=== PATIENT | female | born 1945 | race Caucasian/White ===

== ENCOUNTER → 2017-04-16 | Day surgery (SDC) | payer MEDICARE, OTHER ==
[~2017-04-16] VITALS: Ht 162.6 cm; Wt 63.0 kg
[~2017-04-16] MED LIST: ACETAMINOPHEN TAB 650MG DOSE (2X325MG) As Ordered ONE; ACETAMINOPHEN TAB 650MG DOSE (2X325MG) PO PRN; ACETYLCHOLINE OPHTH SOLN 1% 2ML (MIOCHOL-E) As Ordered ONE; AMLO10TA2 PO; ASPI1TAB PO; ATEN25TA PO; BALANCED SALT IRRIGATION SOLUTION 500ML BAG (FOR OR EYE MACHINE) As Ordered ONE; CEFUROXIME 1MG/0.1ML INTRACAMERAL INJ As Ordered ONE; COQ-400C PO; D5W/0.2% SODIUM CHLORIDE 1,000 ML IV SCH; D5W/0.2% SODIUM CHLORIDE 250 ML IV ONE; HEALON DUET (HEALON 10MG/ML 0.55ML & HEALON ENDOCOAT 30MG/ML 0.85ML) As Ordered ONE; LIDOCAINE 0.75%/EPINEPHRINE 0.025% IN BSS 1ML SYR INTRACAMERAL (OR ONLY) As Ordered ONE; LIDOCAINE 4% INJ 5 ML AMP As Ordered ONE; MIDAZOLAM INJ 2 MG/2 ML VIAL (J2250) As Ordered ONE; OFLOXACIN 0.3 % (OCUFLOX) OPTH SOL 5ML OS ONE; OMEP20CA3 PO; ONDANSETRON 4MG/2ML VIAL (J2405) IV PRN; PAXI10TA2 PO; PHENYLEPHRINE 2.5% OPHTH SOL 2ML OS ONE; POVIDONE-IODINE 5% OPHTH PREP SOL 30ML As Ordered ONE; PROPARACAINE 0.5% OPHTH SOL 15ML OS ONE; SIMV40TA2 PO; TOBRADEX OPHTH OINT 3.5 GM As Ordered ONE; TRAD5TAB PO; TROPICAMIDE 1% OPHTH SOLN 2ML OS ONE; [UNRECOGNIZED DRUG - CODE] PO; fentaNYL 100 MCG/2 ML INJECTION (J3010) As Ordered ONE
[2017-04-16 09:50] VITALS: BP 172/74
--- NOTE | 2017-04-17 07:36 | RO ---
DATE OF PROCEDURE: 04/16/2017 PREOPERATIVE DIAGNOSIS: Visually significant nuclear sclerotic cataract left eye. POSTOPERATIVE DIAGNOSIS: Visually significant nuclear sclerotic cataract left eye. PROCEDURE: Cataract extraction with use of phacoemulsification and placement of intraocular lens Tahir AU00T0, 24.5 diopter, left eye. SURGEON: Sal Milton DO AGRONOMY TEACHER: ANESTHESIA: Local with monitored anesthesia care (MAC). COMPLICATIONS: None. POSTOPERATIVE CONDITION: Stable. INDICATION FOR SURGERY: Blurred vision left eye affecting patient's activities of daily living. DESCRIPTION OF PROCEDURE: The patient was seen in the preoperative area and properly identified. The correct operative eye was identified and marked. Attention was turned to that eye. The patient received topical antibiotics in the preoperative area. The patient then received topical dilating drops consisting of tropicamide and phenylephrine. The patient was then transferred to the operating room. The correct side was reidentified. The patient received topical anesthetics and antibiotics on the surface of the eye. The eye was prepped and draped in a sterile fashion. The upper and lower eyelids were isolated with Tegaderm tape, and the lids were held open with an adjustable speculum. Using a sideport blade, a paracentesis incision was made. Intraocular preservative-free lidocaine was then injected into the anterior chamber. Viscoelastic was then injected into the anterior chamber through the paracentesis. Using a 2.65 mm sharp-tipped keratome, the anterior chamber was entered via a temporal clear corneal incision. A continuous curvilinear capsulorrhexis was created with the aid of a 26-gauge cystotome and Utrata forceps. Hydrodissection was performed with balanced salt solution (BSS) on a blunt cannula until the nucleus was freely mobile. The crystalline lens was phacoemulsified and aspirated. Additional cohesive viscoelastic was placed into the capsular bag to deepen it. An AU00T0 lens was placed into the capsular bag and confirmed by visualizing the continuous curvilinear capsulorrhexis. Additional irrigation and aspiration was used to remove cortical material and remaining viscoelastic. The clear corneal incision was hydrated with BSS on a blunt cannula. The lens was well positioned. The incisions were then tested for leaks and found to be negative. The eye was then palpated for appropriate pressure and adjusted accordingly with BSS. The eyelid speculum was then carefully removed. Tobradex ointment was placed in the eye. An eye patch and shield were then secured over the eye. The patient tolerated the procedure well and was discharged to the recovery unit in a stable condition. MAKEDA
== END | disposition home or self-care (01) ==
LOC: M SDC 06:37
PROVIDERS: ATTEND Ophthalmology
DX: H25.12 Age-related nuclear cataract, left eye (principal); I11.9 Hypertensive heart disease without heart failure; I25.10 Atherosclerotic heart disease of native coronary artery without angina pectoris; E11.9 Type 2 diabetes mellitus without complications; H40.9 Unspecified glaucoma; H35.30 Unspecified macular degeneration; E78.00 Pure hypercholesterolemia, unspecified; I73.9 Peripheral vascular disease, unspecified; D64.9 Anemia, unspecified; R23.3 Spontaneous ecchymoses; K21.9 Gastro-esophageal reflux disease without esophagitis; F17.290 Nicotine dependence, other tobacco product, uncomplicated; F32.9 Major depressive disorder, single episode, unspecified; Z79.899 Other long term (current) drug therapy; Z79.82 Long term (current) use of aspirin; Z87.81 Personal history of (healed) traumatic fracture; Z90.710 Acquired absence of both cervix and uterus; Z98.51 Tubal ligation status; Z95.5 Presence of coronary angioplasty implant and graft
CPT/HCPCS: 66984; J2250; J3010; V2632

== ENCOUNTER → 2017-05-07 | Day surgery (SDC) | payer MEDICARE, OTHER ==
[~2017-05-07] VITALS: Ht 162.6 cm; Wt 63.0 kg
[~2017-05-07] MED LIST changes: +ACETAMINOPHEN 325 MG TAB PO PRN; -ACETAMINOPHEN TAB 650MG DOSE (2X325MG) As Ordered ONE; -ACETAMINOPHEN TAB 650MG DOSE (2X325MG) PO PRN; -D5W/0.2% SODIUM CHLORIDE 1,000 ML IV SCH; -D5W/0.2% SODIUM CHLORIDE 250 ML IV ONE; +NS 1,000 ML IV SCH; +OFLOXACIN 0.3 % (OCUFLOX) OPTH SOL 5ML OD ONE; -OFLOXACIN 0.3 % (OCUFLOX) OPTH SOL 5ML OS ONE; -ONDANSETRON 4MG/2ML VIAL (J2405) IV PRN; +PHENYLEPHRINE 2.5% OPHTH SOL 2ML OD ONE; -PHENYLEPHRINE 2.5% OPHTH SOL 2ML OS ONE; +PROPARACAINE 0.5% OPHTH SOL 15ML OD ONE; -PROPARACAINE 0.5% OPHTH SOL 15ML OS ONE; +TRIMETHOBENZAMIDE 300 MG CAP PO PRN; +TROPICAMIDE 1% OPHTH SOLN 2ML OD ONE; -TROPICAMIDE 1% OPHTH SOLN 2ML OS ONE
[2017-05-07 14:30] VITALS: BP 156/82
--- NOTE | 2017-05-07 19:12 | RO ---
DATE OF PROCEDURE: 05/07/2017 PREOPERATIVE DIAGNOSIS: Visually significant nuclear sclerotic cataract right eye. POSTOPERATIVE DIAGNOSIS: Visually significant nuclear sclerotic cataract right eye. PROCEDURE: Cataract extraction with use of phacoemulsification, and placement of intraocular lens, AU00T0 24.5D , right eye. SURGEON: Sal Milton DO INSTALLATION SUPERVISOR: ANESTHESIA: Local with monitored anesthesia care (MAC). COMPLICATIONS: None. POSTOPERATIVE CONDITION: Stable. INDICATION FOR SURGERY: Blurred vision right eye affecting patient's activities of daily living. DESCRIPTION OF PROCEDURE: The patient was seen in the preoperative area and properly identified. The correct operative eye was identified and marked. Attention was turned to that eye. The patient received topical antibiotics in the preoperative area. The patient then received topical dilating drops consisting of Tropicamide and Phenylephrine. The patient was then transferred to the operating room. The correct side was re-identified. The patient received topical anesthetics and antibiotics on the surface of the eye. The eye was prepped and draped in a sterile fashion. The upper and lower eyelids were isolated with Tegaderm tape, and the lids were held open with an adjustable speculum. Using a sideport blade, a paracentesis incision was made. Intraocular preservative-free lidocaine was then injected into the anterior chamber. Viscoelastic was then injected into the anterior chamber through the paracentesis. Using a 2.65 mm sharp-tipped keratome, the anterior chamber was entered via a temporal clear corneal incision. A continuous curvilinear capsulorrhexis was created with the aid of a 26g cystotome and utrata forceps. Hydrodissection was performed with balanced salt solution (BSS) on a blunt cannula until the nucleus was freely mobile. The crystalline lens was phacoemulsified and aspirated. Additional cohesive viscoelastic was placed into the capsular bag to deepen it. A AU00T0 24.5 lens D was placed into the capsular bag and confirmed by visualizing the continuous curvilinear capsulorrhexis. Additional irrigation and aspiration was used to remove cortical material and remaining viscoelastic. The clear corneal incision was hydrated with BSS on a blunt cannula. The lens was well positioned. The incisions were then tested for leaks and found to be negative. The eye was then palpated for appropriate pressure and adjusted accordingly with BSS. The eyelid speculum was carefully removed. A shield was then secured over the eye. The patient tolerated the procedure well and was discharged to the recovery unit in a stable condition. MAKEDA
== END | disposition home or self-care (01) ==
LOC: M SDC 09:54
PROVIDERS: ATTEND Ophthalmology
DX: H25.11 Age-related nuclear cataract, right eye (principal); I73.9 Peripheral vascular disease, unspecified; I10 Essential (primary) hypertension; E78.00 Pure hypercholesterolemia, unspecified; E11.9 Type 2 diabetes mellitus without complications; K21.9 Gastro-esophageal reflux disease without esophagitis; D64.9 Anemia, unspecified; R23.3 Spontaneous ecchymoses; M12.9 Arthropathy, unspecified; F32.9 Major depressive disorder, single episode, unspecified; F17.210 Nicotine dependence, cigarettes, uncomplicated; Z79.899 Other long term (current) drug therapy; Z79.82 Long term (current) use of aspirin; Z87.81 Personal history of (healed) traumatic fracture; Z90.710 Acquired absence of both cervix and uterus; Z98.51 Tubal ligation status; Z95.820 Peripheral vascular angioplasty status with implants and grafts
CPT/HCPCS: 66984; J2250; J3010; V2632

== ENCOUNTER → 2018-05-12 | Outpatient (CLI) | payer MEDICARE, OTHER | LOC: M RAD 08:39 | DX: I73.9 Peripheral vascular disease, unspecified (principal); I65.23 Occlusion and stenosis of bilateral carotid arteries | CPT/HCPCS: 93880 ==

== ENCOUNTER → 2019-01-27 | Outpatient (CLI) | payer MEDICARE, OTHER ==
[~2019-01-27] MED LIST changes: -ACETAMINOPHEN 325 MG TAB PO PRN; -ACETYLCHOLINE OPHTH SOLN 1% 2ML (MIOCHOL-E) As Ordered ONE; -AMLO10TA2 PO; +AMLO10TA5 PO; +ATAC32TA17 PO; -BALANCED SALT IRRIGATION SOLUTION 500ML BAG (FOR OR EYE MACHINE) As Ordered ONE; -CEFUROXIME 1MG/0.1ML INTRACAMERAL INJ As Ordered ONE; -HEALON DUET (HEALON 10MG/ML 0.55ML & HEALON ENDOCOAT 30MG/ML 0.85ML) As Ordered ONE; -LIDOCAINE 0.75%/EPINEPHRINE 0.025% IN BSS 1ML SYR INTRACAMERAL (OR ONLY) As Ordered ONE; -LIDOCAINE 4% INJ 5 ML AMP As Ordered ONE; -MIDAZOLAM INJ 2 MG/2 ML VIAL (J2250) As Ordered ONE; -NS 1,000 ML IV SCH; -OFLOXACIN 0.3 % (OCUFLOX) OPTH SOL 5ML OD ONE; +PAXI10TA12 PO; -PAXI10TA2 PO; -PHENYLEPHRINE 2.5% OPHTH SOL 2ML OD ONE; -POVIDONE-IODINE 5% OPHTH PREP SOL 30ML As Ordered ONE; -PROPARACAINE 0.5% OPHTH SOL 15ML OD ONE; -TOBRADEX OPHTH OINT 3.5 GM As Ordered ONE; -TRIMETHOBENZAMIDE 300 MG CAP PO PRN; -TROPICAMIDE 1% OPHTH SOLN 2ML OD ONE; -[UNRECOGNIZED DRUG - CODE] PO; -fentaNYL 100 MCG/2 ML INJECTION (J3010) As Ordered ONE
--- NOTE | 2019-01-27 11:49 | REP ---
Duplex carotid sonography: History: Occlusion and stenosis bilateral carotid arteries. Atherosclerosis. Comparison CT angiography of the neck is from July 26, 2015. Findings: Antegrade flow is observed in the left vertebral artery. Variable velocities were observed in the right vertebral artery. Right carotid: Incidental note is made of a 0.7 cm nodule in the right lobe of the thyroid gland. The right common carotid artery shows diffuse intimal thickening. There is moderate mixed plaquing in the bulb and proximal ICA on the right side. Color flow and spectral Doppler interrogation are unremarkable in the ICA on the right. Velocity chart right carotid: PSV EDV Right CCA 139.0 cm/s Right ICA 97.0 19.0 Right ECA 164.0 Right ICA/CCA ratio 1.3. Left carotid: The left common carotid artery shows diffuse intimal thickening. There is moderate mixed plaquing in the distal CCA and proximal ICA on the left side. Color flow and spectral Doppler interrogation are unremarkable however. PSV EDV Left CCA 118.0 cm/s Left ICA 83.0 19.0 Left ECA 141.0 Left ICA/CCA ratio 1.0. Impression: 16-49% category narrowing in the ICAs bilaterally by Doppler velocity criteria. Incidental note is made of a 7 mm right thyroid nodule. Normal flow observed in the left vertebral artery. Variable velocities and waveforms seen in the right vertebral artery. Electronically Signed by Tyrone Holden MD 01/27/2019 11:51 A
--- NOTE | 2019-01-27 11:56 | REP ---
Bilateral lower extremity arterial Doppler ultrasound: History: Peripheral vascular disease. Comparison study May 12, 2018. The Findings: Ankle brachial indices are measured at 0.8 on the right and 0.8 on the left. Atherosclerotic changes are seen bilaterally. Biphasic arterial wave forms are noted throughout the lower extremities. There is evidence of right mid superficial femoral artery stenosis. Mild stenoses are seen in the common femoral arteries bilaterally. Reversal of flow is noted in the distal anterior tibial artery on the left. Right-sided Cardoza's cyst is again seen. Velocity chart right lower extremity artery: Right external iliac artery 162 cm/S CF A 215/98 cm/S Profunda 167 cm/S Proximal SFA 123 Mid SFA 77/50 Distal SFA 12 Popliteal 12 Proximal AT A 24 Tibioperoneal trunk 29 Proximal CERTIFIED NURSING ASSISTANT 36 Distal CERTIFIED NURSING ASSISTANT 37 Distal AT A 33 Velocity chart left lower extremity arteries: Left external iliac artery 166 cm/S CF A 245/182 Profunda 142 Proximal SFA 149 Mid SFA 109 Distal SFA 141 Popliteal 64 Proximal AT A 24 Tibioperoneal trunk 36 Proximal CERTIFIED NURSING ASSISTANT 57 Distal CERTIFIED NURSING ASSISTANT 51 Distal AT A reversed. Electronically Signed by Tyrone Holden MD 01/27/2019 11:47 A
== END ==
LOC: M RAD 09:34
PROVIDERS: ATTEND Surgery Vascular Surgery
DX: I65.23 Occlusion and stenosis of bilateral carotid arteries (principal); I70.213 Atherosclerosis of native arteries of extremities with intermittent claudication, bilateral legs

== ENCOUNTER → 2019-09-15 | Outpatient (CLI) | payer MEDICARE, OTHER ==
[~2019-09-15] MED LIST changes: -ASPI1TAB PO; +ASPI81TA26 PO; -OMEP20CA3 PO; +OMEP20CA4 PO
--- NOTE | 2019-09-15 18:22 | REP ---
Bilateral lower extremity arterial Doppler ultrasound: History: Atherosclerosis. Foot pain. Findings: Ankle brachial indices are measured at 0.9 on the right and 0.8 on the left. A Cardoza's cyst is seen in the popliteal fossa on the right as before. Moderate plaquing is observed bilaterally. Multiple areas of mild to moderate narrowing is seen. Biphasic waveforms are noted throughout both lower extremities. There is evidence of a small focal occlusion of the left anterior tibial artery distally with revascularization and reversal of flow distally in the anterior tibial artery on the left. Right lower extremity arterial Doppler velocity chart: Right CF A 170 cm/S Profunda 141 Proximal SFA 104 Mid SFA 120 Distal SFA 132 Popliteal 49 Proximal AT A 27 Tibioperoneal trunk 44 Proximal BOX OFFICE AGENT 41 Distal BOX OFFICE AGENT 19 Distal AT A 52 Left lower extremity arterial Doppler velocity chart: Left CF A 147 cm/S Profunda 173 Proximal SFA 119 Mid SFA 274 Distal SFA 96 Popliteal 60 Proximal AT A 27 Tibioperoneal trunk 62 Proximal BOX OFFICE AGENT 319 Distal BOX OFFICE AGENT 43 Distal AT A 25 Electronically Signed by Tyrone Holden MD 09/15/2019 06:13 P
--- NOTE | 2019-09-15 18:59 | REP ---
Duplex carotid sonography: History: Status post left carotid endarterectomy 2014. Atherosclerosis. Nicotine dependence. Comparison carotid sonography January 27, 2019. Findings: Antegrade flow is observed in the left vertebral artery. Right vertebral artery is not seen. Right carotid. The right common carotid artery shows diffuse intimal thickening. There is mixed plaquing in the bulb and proximal ICA on the right side on two-dimensional scanning. Color flow and spectral Doppler interrogation remain unremarkable on the right. Velocity chart right carotid: CCA PSV 105 cm/s ICA PSV 115 cm/s ICA EDV 25 cm/s ECA PSV 143 cm/s Right ICA/CCA ratio normal 1.1. Impression: Less than 50% category narrowing in the right ICA. Doppler velocities have not changed significantly from the prior study. Left carotid: The left common carotid artery shows diffuse intimal thickening and mild soft plaquing. There is mixed plaquing in the bulb and proximal ICA on the left side. Color flow and spectral Doppler interrogation show mildly elevated systolic velocity in the left ICA. Velocity chart left carotid: CCA PSV 110 cm/s ICA PSV 151 cm/s ICA EDV 22 cm/s ECA PSV 117 cm/s Left ICA/CCA ratio normal 1.4. Impression: Less than 50% category narrowing in the left ICA by Doppler velocity criteria. Systolic velocity in the left ICA is higher than it was on the prior study. Electronically Signed by Tyrone Holden MD 09/16/2019 07:47 A
== END ==
LOC: M RAD 13:49
PROVIDERS: ATTEND Physician Assistant
DX: I70.213 Atherosclerosis of native arteries of extremities with intermittent claudication, bilateral legs (principal); F17.218 Nicotine dependence, cigarettes, with other nicotine-induced disorders; I65.23 Occlusion and stenosis of bilateral carotid arteries; M71.21 Synovial cyst of popliteal space [Baker], right knee

== ENCOUNTER → 2020-01-09 | Outpatient (CLI) | payer MEDICARE, OTHER ==
[~2020-01-09] MED LIST changes: +OMEP1CAP73 PO; -OMEP20CA4 PO; -SIMV40TA2 PO; +SIMV40TA20 PO
--- NOTE | 2020-01-12 15:23 | REP ---
only the most recent prior examination from [facility] Clinical: Follow up abnormal findings. Technique: Axial noncontrast images from the thoracic inlet to the upper abdomen with coronal and sagittal re-formations. Comparison: 08/30/2018, . Findings: Chronic age-related interstitial changes along with chronic bronchiectasis and minimal scattered scarring primarily involving the perihilar regions extending into the right middle lobe and right infrahilar lung zone. Small chronic stable area of scarring at the lingula measuring approximately 15 mm is unchanged through that images dated 10/07/2012. No acute consolidation, obvious nodule or mass lesion. No effusion. No pneumothorax. Mediastinum demonstrates atherosclerotic changes to the thoracic aorta and coronary arteries with cardiomegaly. No pericardial effusion. Mediastinal lymph nodes up to 11 mm are nonspecific. Impression: Chronic relatively stable findings with mild progression. No obvious acute mediastinal or pleuroparenchymal process appreciated. Electronically Signed by Shree Sosa MD 01/12/2020 03:14 P
== END ==
LOC: M RAD 13:05
PROVIDERS: ATTEND Internal Medicine Pulmonary Disease
DX: R91.8 Other nonspecific abnormal finding of lung field (principal)

== ENCOUNTER → 2020-04-02 | Outpatient (CLI) | payer MEDICARE, OTHER ==
--- NOTE | 2020-04-02 15:04 | REP ---
REASON: Followup. COMPARISON: Multiple, all reviewed, the latest 01/09/2020. There is no significant change in appearance of the mediastinum or pulmonary dimitri. There are no pleural or pericardial effusions. There is no significant change in appearance of the imaged upper abdomen or imaged osseous structures. There are renal calcifications, status quo, likely renovascular. The imaged osseous structures are essentially unchanged. Evaluation of the lung lugo shows no new abnormal nodules, masses, or opacities. There is mild cylindrical bronchiectasis, status quo. There is fibrosis in the inferior lingula, status quo. IMPRESSION: Stable CT examination of the chest. Electronically Signed by Britton Muro DO 04/02/2020 04:06 P
== END ==
LOC: M RAD 13:40
PROVIDERS: ATTEND Physician Assistant
DX: J47.9 Bronchiectasis, uncomplicated (principal); J84.10 Pulmonary fibrosis, unspecified; N20.0 Calculus of kidney

== ENCOUNTER → 2020-04-05 | Outpatient (CLI) | payer MEDICARE, OTHER ==
--- NOTE | 2020-04-05 12:22 | REP ---
BILATERAL LOWER EXTREMITY DUPLEX DOPPLER ARTERIAL ULTRASOUND: Real-time ultrasound evaluation and duplex Doppler interrogation of the bilateral lower extremity arterial systems is performed and compared to a prior study of 09/15/2019. AMRIT right and left are both 0.6. There is again a complex popliteal cyst on the right 5.1 x 1.9 x 4.7 cm. Diffuse biphasic waveforms are seen bilaterally. Moderate to severe plaquing is seen bilaterally. There is elevated peak systolic velocity in the right profunda and proximal right SFA possibly indicating some degree of stenosis at these levels. Otherwise, velocity appears similar to the prior study. Previously noted occlusion of the left anterior tibial artery distally is not seen on today's exam with normal direction of flow throughout. Right Peak Left Peak Systolic Velocity Systolic velocity Common femoral artery 158.7 cm/s 127.1 cm/s Profunda 271.9 cm/s 66.8 cm/s Proximal SFA 171.2 cm/s 151.4 cm/s Mid SFA 144.6 cm/s 133.6 cm/s Distal SFA 133.0 cm/s 82.9 cm/s Popliteal 63.6 cm/s 55.9 cm/s Proximal TRINY 44.0 cm/s 30.5 cm/s Tibial peroneal trunk 24.0 cm/s 72.6 cm/s Proximal ACCOUNT UNDERWRITER 58.3 cm/s 36.0 cm/s Distal ACCOUNT UNDERWRITER 21.4 cm/s 37.1 cm/s Distal TRINY 50.4 cm/s 38.2 cm/s Electronically Signed by Tim Merida MD 04/05/2020 12:57 P
--- NOTE | 2020-04-05 15:22 | REP ---
CAROTID ULTRASOUND: Real-time ultrasound evaluation and duplex Doppler interrogation of the extracranial carotid vasculature is performed. There is mild to moderate plaquing and narrowing in both carotid bulbs extending into the internal and external carotid arteries. Luminal narrowing is less than 50%. There is no evidence of hemodynamically significant stenosis of either internal carotid artery. Normal flow velocities are seen. The vertebral arteries demonstrate normal direction of flow. RIGHT LEFT Peak systolic velocity ICA 119.9 cm/s 123.7 cm/s End diastolic velocity ICA 25.6 cm/s 30.3 cm/s Peak systolic velocity CCA 149.8 cm/s 182.80 cm/s Peak systolic velocity ECA 178.7 cm/s 165.3 cm/s ICA/CCA ratio 0.8 0.68 IMPRESSION: Bilateral luminal narrowing of the internal carotid arteries less than 50%. No evidence of hemodynamically significant stenosis. Electronically Signed by Tim Merida MD 04/05/2020 11:00 A
== END ==
LOC: M RAD 10:12
PROVIDERS: ATTEND Physician Assistant
DX: I65.23 Occlusion and stenosis of bilateral carotid arteries (principal); M71.21 Synovial cyst of popliteal space [Baker], right knee; I70.203 Unspecified atherosclerosis of native arteries of extremities, bilateral legs

== ENCOUNTER → 2020-12-17 | Outpatient (CLI) | payer MEDICARE, OTHER ==
[~2020-12-17] MED LIST changes: -AMLO10TA5 PO; +AMLO1TAB25 PO
--- NOTE | 2020-12-17 13:08 | REP ---
INDICATION: ATHSCL [place] ARTERIES OF EXTRM W INTRMT MARU, BI LEGS COMPARISON: Comparison study April 05, 2020.. TECHNIQUE: Real-time ultrasound evaluation and duplex Doppler interrogation of the extracranial carotid vasculature is performed. FINDINGS: Retrograde flow is observed in the right vertebral artery consistent with subclavian steal phenomena. This is a new finding. Flow in the left vertebral artery is antegrade.. Right carotid: The right common carotid artery shows diffuse intimal thickening but is otherwise unremarkable. There mild to moderate mixed plaquing in the right carotid bulb and proximal ICA on two-dimensional scanning. Color flow and spectral Doppler interrogation are unremarkable on the right. Velocity chart right carotid: Right CCA PSV: 81 cm/S Right ICA PSV: 142 cm/S Right ICA EDV: 26 cm/S Right ECA PSV: 215 cm/S Right ICA/CCA ratio: 1.1 Left carotid: The left common carotid artery shows diffuse intimal thickening but is otherwise unremarkable. There is mild to moderate mixed plaquing in the left carotid bulb and proximal ICA on two-dimensional scanning. Color flow and spectral Doppler interrogation are unremarkable on the left. Velocity chart left carotid: Left CCA PSV: 150 cm/S Left ICA PSV: 77 cm/S Left ICA EDV: 17 cm/S Left ECA PSV: 105 cm/S Left ICA/CCA ratio: 0.6 IMPRESSION: Less than 50% category narrowing in the right internal carotid artery by Doppler velocity criteria. Retrograde flow right vertebral artery as a new finding consistent with subclavian steal. Less than 50% category narrowing in the left ICA by Doppler velocity criteria. <Electronically signed by Chris Holden > 12/17/20 [id number]
--- NOTE | 2020-12-17 13:14 | REP ---
INDICATION: ATHSCL [place] ARTERIES OF EXTRM W INTRMT MARU, BI LEGS. COMPARISON: Comparison study April 05, 2020.. TECHNIQUE: Bilateral lower extremity arterial Doppler ultrasound. FINDINGS: Ankle brachial indices are low bilaterally measured at 0.6 on each side. This is unchanged. However, a new finding of a significant disparity in brachial artery blood pressure was observed with the right lower at 114 systolic and the left higher at 190. This combined with the carotid sonogram findings suggest subclavian artery stenosis or occlusion on the right. A Cardoza's cyst is noted incidentally in the right popliteal fossa measuring 5.8 cm in greatest diameter. Moderate atherosclerotic changes are noted diffusely. There is a distal occlusion in the anterior tibial artery on the left with trickle flow observed distal to this. Biphasic arterial Doppler waveforms are noted bilaterally throughout the lower extremities. Right lower extremity arterial Doppler velocity chart: Right BILL OF MATERIALS CLERK PSV 135 cm/S Profundal 155 Proximal SFA 124 Mid SFA 57 Distal SFA 117 Popliteal 77 Proximal TRINY 46 Tibial-peroneal trunk 46 Proximal RESTAURANT CREW MEMBER 46 Distal RESTAURANT CREW MEMBER 40 Distal TRINY 31 Left lower extremity arterial Doppler velocity chart: Left BILL OF MATERIALS CLERK PSV 122 cm/S Profundal 94 Proximal SFA 88 Mid SFA 106 Distal SFA 86 Popliteal 34 Proximal TRINY 31 Tibial-peroneal trunk 31 Proximal RESTAURANT CREW MEMBER 49 Distal RESTAURANT CREW MEMBER 24 Distal TRINY occluded IMPRESSION: Bilateral lower extremity atherosclerotic changes. Distal TRINY occlusion on the left. Disparate brachial artery pressures, decreased on the right. Suggestive of subclavian artery stenosis or occlusion.. <Electronically signed by Chris Holden > 12/17/20 [id number]
== END ==
LOC: M RAD 10:35
PROVIDERS: ATTEND Physician Assistant
DX: I70.213 Atherosclerosis of native arteries of extremities with intermittent claudication, bilateral legs (principal); I65.23 Occlusion and stenosis of bilateral carotid arteries

== ENCOUNTER → 2021-04-03 | Outpatient (CLI) | payer MEDICARE, OTHER ==
[~2021-04-03] MED LIST changes: +ISOVUE-370 76% 100ML VIAL As Ordered ONE
--- NOTE | 2021-04-03 13:43 | REP ---
INDICATION: STRICTURE OF ARTERY RIGHT ARM. COMPARISON: Carotid ultrasound 12/17/2020. TECHNIQUE: CT angiogram of the right upper extremity performed following the intravenous administration of 100 cc of Isovue 370. Sagittal, coronal and MIP reconstruction images performed. FINDINGS: The distal brachiocephalic artery demonstrates moderate calcific plaque. There is high-grade critical stenosis at the origin of the right subclavian artery. There is only very mild narrowing of the proximal right common carotid artery. Mild calcified plaque is seen throughout the remaining subclavian artery extending into the axillary artery. There is approximately 50% stenosis of the more distal right subclavian artery. There is mild narrowing of the right axillary artery without focal stenosis. The brachial artery, radial and ulnar arteries (up to the wrist joint) are patent without evidence of significant stenosis and no occlusion. IMPRESSION: High-grade stenosis at the origin of the right subclavian artery. Approximately 50 percent stenosis of the distal right subclavian artery. <Electronically signed by Tim Merida > 04/03/21 [id number]
== END ==
LOC: M RAD 12:37
PROVIDERS: ATTEND Nurse Practitioner Family
DX: I77.1 Stricture of artery (principal)
CPT/HCPCS: 73206; Q9967

== ENCOUNTER → 2021-04-19 | Outpatient (CLI) | payer MEDICARE, OTHER ==
[~2021-04-19] MED LIST changes: -ISOVUE-370 76% 100ML VIAL As Ordered ONE
== END ==
LOC: M LABSMTC 10:10
PROVIDERS: ATTEND Surgery Vascular Surgery
DX: Z01.818 Encounter for other preprocedural examination (principal); D69.8 Other specified hemorrhagic conditions; Z20.822 Contact with and (suspected) exposure to COVID-19

== ENCOUNTER → 2021-06-28 | Outpatient (CLI) | payer MEDICARE, OTHER | LOC: M LAB 13:52 | PROVIDERS: ATTEND Physician Assistant | DX: R00.2 Palpitations (principal) ==

== ENCOUNTER 2022-01-16 13:13 | Inpatient (IN) | payer MEDICARE, OTHER ==
[~2022-01-16] VITALS: Ht 162.6 cm; Wt 51.3 kg
[2022-01-16] MEDS ORDERED: ATAC32TA17 PO (13:39)
[2022-01-16 14:31] LABS: BASO % 0.3 % (0.0-1.0); EOS # 0.1 10^3/uL (0.0-0.5); HEMATOCRIT 37.6 % (36.0-47.0); HEMOGLOBIN 12.6 g/dl (12.0-15.5); LYMPH # 1.9 10^3/uL (1.5-5.0); LYMPH % 19.2 % (24.0-44.0); MEAN CORPUSCULAR HEMOGLOBIN 30.5 pg (27.0-33.0); MEAN CORPUSCULAR HGB CONC 33.5 g/dl (32.0-36.5); MONO # 0.5 10^3/uL (0.0-0.8); MONO % 5.3 % (2.0-8.0); NEUTROPHILS # 7.4 10^3/uL (1.5-8.5); NEUTROPHILS % 73.8 % (36.0-66.0); PLATELET COUNT, AUTOMATED 309 10^3/uL (150-450); RED BLOOD COUNT 4.13 10^6/uL (4.00-5.40)
[2022-01-16 15:05] LABS: ALBUMIN 1.6 GM/DL (3.2-5.2); ALT/SGPT 16 U/L (12-78); BILIRUBIN,DIRECT < 0.1 MG/DL (0.0-0.2); BILIRUBIN,TOTAL 0.2 MG/DL (0.2-1.0); BLOOD UREA NITROGEN 13 MG/DL (7-18); CALCIUM LEVEL 8.1 MG/DL (8.8-10.2); CARBON DIOXIDE LEVEL 26 MEQ/L (21-32); CHLORIDE LEVEL 107 MEQ/L (98-107); CREATININE FOR GFR 1.18 MG/DL (0.55-1.30); GLOMERULAR FILTRATION RATE 47.7 (>39); GLUCOSE, FASTING 107 MG/DL (70-100); LIPASE 85 U/L (73-393); POTASSIUM SERUM 3.1 MEQ/L (3.5-5.1); SODIUM LEVEL 143 MEQ/L (136-145); TOTAL PROTEIN 5.1 GM/DL (6.4-8.2)
[2022-01-16] MEDS ORDERED: POTASSIUM CHLORIDE 10MEQ SR TABLET PO ONE ×2 (15:25→18:00)
[2022-01-16] MEDS ORDERED: ISOVUE-370 76% 100ML VIAL As Ordered ONE (15:36)
[2022-01-16] MEDS ORDERED: PROB250C PO (17:48)
[2022-01-16] MEDS ORDERED: HOME MED LIST COMPLETE! XX SCH (17:50)
[2022-01-16] MEDS: KCL 40MEQ IN D5/0.45NS 1000ML 1,000 ML IV SCH (18:38)
[2022-01-16] MEDS ORDERED: DEXTROSE 50% 50 ML SYRINGE IV PRN (18:40)
[2022-01-16] MEDS ORDERED: GLUCOSE 4GM CHEW TABLET PO PRN (18:40)
[2022-01-16] MEDS ORDERED: GLUCAGON INJ 1MG VIAL SC PRN (18:40)
[2022-01-16] MEDS: HumaLOG INSULIN (NovoLOG) PER UNIT SC SCH ×2 (19:06→23:59)
[2022-01-16] MEDS: PIPERACILLIN/TAZOBACTAM SOD 2.25 GM in D5W MINI-BAG PLUS 50 ML IV SCH (19:25)
[2022-01-16 19:39] LABS: HEMOGLOBIN A1c 6.8 %
[2022-01-16] MEDS ORDERED: ATENOLOL 12.5MG PER 1/2 TABLET PO ONE (20:00)
[2022-01-17] VITALS (8 sets, daily range): BP systolic 125–182; BP diastolic 61–78; O2SAT 95–97
[2022-01-17] MEDS: PIPERACILLIN/TAZOBACTAM SOD 2.25 GM in D5W MINI-BAG PLUS 50 ML IV SCH ×5 (02:06→23:34)
[2022-01-17] MEDS: KCL 40MEQ IN D5/0.45NS 1000ML 1,000 ML IV SCH (03:40)
[2022-01-17] MEDS: HumaLOG INSULIN (NovoLOG) PER UNIT SC SCH ×4 (05:23→23:36)
[2022-01-17 08:25] LABS: BASO % 0.6 % (0.0-1.0); EOS # 0.2 10^3/uL (0.0-0.5); HEMATOCRIT 34.1 % (36.0-47.0); HEMOGLOBIN 11.2 g/dl (12.0-15.5); LYMPH # 1.6 10^3/uL (1.5-5.0); LYMPH % 23.8 % (24.0-44.0); MEAN CORPUSCULAR HEMOGLOBIN 30.5 pg (27.0-33.0); MEAN CORPUSCULAR HGB CONC 32.8 g/dl (32.0-36.5); MEAN CORPUSCULAR VOLUME 92.9 fl (80.0-96.0); MONO # 0.5 10^3/uL (0.0-0.8); MONO % 7.6 % (2.0-8.0); NEUTROPHILS # 4.4 10^3/uL (1.5-8.5); NEUTROPHILS % 64.9 % (36.0-66.0); PLATELET COUNT, AUTOMATED 263 10^3/uL (150-450); RED BLOOD COUNT 3.67 10^6/uL (4.00-5.40); WHITE BLOOD COUNT 6.7 10^3/uL (4.0-10.0)
[2022-01-17 09:00] LABS: ALBUMIN 1.3 GM/DL (3.2-5.2); BILIRUBIN,DIRECT 0.1 MG/DL (0.0-0.2); BILIRUBIN,TOTAL 0.3 MG/DL (0.2-1.0); CALCIUM LEVEL 7.6 MG/DL (8.8-10.2); CHOLESTEROL RISK RATIO 3.377 (<5); CREATININE FOR GFR 1.09 MG/DL (0.55-1.30); GLOMERULAR FILTRATION RATE 52.2 (>39); POTASSIUM SERUM 3.8 MEQ/L (3.5-5.1); TOTAL PROTEIN 4.5 GM/DL (6.4-8.2)
[2022-01-17] MEDS ORDERED: CANDESARTAN 16MG TABLET PO SCH (09:00)
[2022-01-17] MEDS: dexameTHASONE 4 MG/ML 1ML VIAL (J1100 PER 1MG) IV SCH (09:00)
[2022-01-17] MEDS: atenoloL 25 MG TAB PO SCH (09:29)
[2022-01-17] MEDS: ASPIRIN 81MG ENTERIC TABLET PO SCH (09:29)
[2022-01-17] MEDS: SIMVASTATIN 40 MG TAB PO SCH (09:29)
[2022-01-17] MEDS ORDERED: lisinopriL 5 MG TAB PO SCH (10:15)
[2022-01-17] MEDS: BARICITINIB 2MG TABLET (OLUMIANT) FOR EUA PO SCH (11:19)
[2022-01-17 12:02] LABS: INR 0.94; PARTIAL THROMBOPLASTIN TIME 32.8 SECONDS (25.9-37.0)
[2022-01-17 12:05] LABS: D-DIMER QUANT 2023.27 ng/ml (<500)
[2022-01-17 12:19] LABS: ALBUMIN 1.3 GM/DL (3.2-5.2); ALT/SGPT 13 U/L (12-78); BILIRUBIN,DIRECT < 0.1 MG/DL (0.0-0.2); BILIRUBIN,TOTAL 0.2 MG/DL (0.2-1.0); C REACTIVE PROTEIN QUANTITATIV 0.84 MG/DL (0.00-0.30); FERRITIN 123 NG/ML (8-252); LDH LACTATE DEHYDROGENASE 205 U/L (84-246); TOTAL PROTEIN 4.4 GM/DL (6.4-8.2)
[2022-01-17] MEDS: ISOSORBIDE DIN (ISORDIL) 10MG TAB PO SCH ×2 (12:51→16:43)
[2022-01-17] MEDS ORDERED: SODIUM CHLORIDE 0.9% INJ 10 ML SYR IV ONE (13:00)
[2022-01-17] MEDS ORDERED: REMDESIVIR 200 MG in NS 250 ML IV ONE (13:00)
[2022-01-17] MEDS ORDERED: PROMETHAZINE INJ 25 MG/ML VIAL (J2550) IV ONE (16:15)
[2022-01-17] MEDS ORDERED: ONDANSETRON 4MG/2ML VIAL IV PRN (18:30)
[2022-01-17] MEDS ORDERED: MORPHINE 10 MG/ML 1ML VIAL (J2270) IV ONE (19:00)
[2022-01-17] MEDS: METOCLOPRAMIDE INJ 10MG/2ML VIAL (J2765 PER 1) IV SCH (19:01)
[2022-01-17] MEDS: D5W/0.45% SODIUM CHLORIDE 1,000 ML IV SCH (19:01)
[2022-01-17] MEDS ORDERED: MORPHINE 10 MG/ML 1ML VIAL (J2270) IV PRN (20:00)
[2022-01-18] VITALS (9 sets, daily range): BP systolic 131–149; BP diastolic 60–65; O2SAT 94–96
[2022-01-18] MEDS: METOCLOPRAMIDE INJ 10MG/2ML VIAL (J2765 PER 1) IV SCH ×4 (02:50→19:55)
[2022-01-18] MEDS: D5W/0.45% SODIUM CHLORIDE 1,000 ML IV SCH ×2 (06:23→13:28)
[2022-01-18] MEDS: ISOSORBIDE DIN (ISORDIL) 10MG TAB PO SCH ×3 (06:24→17:20)
[2022-01-18] MEDS: PIPERACILLIN/TAZOBACTAM SOD 2.25 GM in D5W MINI-BAG PLUS 50 ML IV SCH ×4 (06:24→23:51)
[2022-01-18] MEDS: HumaLOG INSULIN (NovoLOG) PER UNIT SC SCH ×4 (06:24→19:49)
[2022-01-18 07:30] LABS: BASO % 0.1 % (0.0-1.0); HEMATOCRIT 32.6 % (36.0-47.0); HEMOGLOBIN 10.8 g/dl (12.0-15.5); LYMPH # 1.3 10^3/uL (1.5-5.0); LYMPH % 13.2 % (24.0-44.0); MEAN CORPUSCULAR HEMOGLOBIN 30.8 pg (27.0-33.0); MEAN CORPUSCULAR HGB CONC 33.1 g/dl (32.0-36.5); MEAN CORPUSCULAR VOLUME 92.9 fl (80.0-96.0); MONO # 0.5 10^3/uL (0.0-0.8); MONO % 5.1 % (2.0-8.0); NEUTROPHILS # 7.7 10^3/uL (1.5-8.5); NEUTROPHILS % 81.2 % (36.0-66.0); PLATELET COUNT, AUTOMATED 275 10^3/uL (150-450); RED BLOOD COUNT 3.51 10^6/uL (4.00-5.40); WHITE BLOOD COUNT 9.5 10^3/uL (4.0-10.0)
[2022-01-18 07:40] LABS: CALCIUM LEVEL 7.7 MG/DL (8.8-10.2); CREATININE FOR GFR 1.38 MG/DL (0.55-1.30); GLOMERULAR FILTRATION RATE 39.8 (>39); POTASSIUM SERUM 3.7 MEQ/L (3.5-5.1)
[2022-01-18] MEDS: ASPIRIN 81MG ENTERIC TABLET PO SCH (08:29)
[2022-01-18] MEDS: SIMVASTATIN 40 MG TAB PO SCH (08:29)
[2022-01-18] MEDS: BARICITINIB 2MG TABLET (OLUMIANT) FOR EUA PO SCH (08:30)
[2022-01-18] MEDS: atenoloL 25 MG TAB PO SCH (08:31)
[2022-01-18] MEDS: dexameTHASONE 4 MG/ML 1ML VIAL (J1100 PER 1MG) IV SCH (08:31)
[2022-01-18] MEDS: REMDESIVIR 100 MG in NS 250 ML IV SCH (13:12)
[2022-01-18] MEDS: SODIUM CHLORIDE 0.9% INJ 10 ML SYR IV SCH (13:13)
[2022-01-18] MEDS ORDERED: NS 1,000 ML IV SCH (18:00)
[2022-01-19] VITALS (9 sets, daily range): BP systolic 128–158; BP diastolic 61–74; O2SAT 92–95
[2022-01-19] MEDS: METOCLOPRAMIDE INJ 10MG/2ML VIAL (J2765 PER 1) IV SCH ×4 (02:16→20:13)
[2022-01-19] MEDS: PIPERACILLIN/TAZOBACTAM SOD 2.25 GM in D5W MINI-BAG PLUS 50 ML IV SCH ×4 (06:25→23:44)
[2022-01-19] MEDS: ISOSORBIDE DIN (ISORDIL) 10MG TAB PO SCH ×3 (06:26→16:53)
[2022-01-19 06:51] LABS: BASO % 0.1 % (0.0-1.0); HEMATOCRIT 31.6 % (36.0-47.0); HEMOGLOBIN 10.4 g/dl (12.0-15.5); LYMPH # 2.4 10^3/uL (1.5-5.0); LYMPH % 17.6 % (24.0-44.0); MEAN CORPUSCULAR HEMOGLOBIN 30.6 pg (27.0-33.0); MEAN CORPUSCULAR HGB CONC 32.9 g/dl (32.0-36.5); MEAN CORPUSCULAR VOLUME 92.9 fl (80.0-96.0); MONO # 0.7 10^3/uL (0.0-0.8); MONO % 5.4 % (2.0-8.0); NEUTROPHILS # 10.5 10^3/uL (1.5-8.5); NEUTROPHILS % 76.5 % (36.0-66.0); PLATELET COUNT, AUTOMATED 275 10^3/uL (150-450); WHITE BLOOD COUNT 13.7 10^3/uL (4.0-10.0)
[2022-01-19 07:19] LABS: CALCIUM LEVEL 7.4 MG/DL (8.8-10.2); CREATININE FOR GFR 1.26 MG/DL (0.55-1.30); GLOMERULAR FILTRATION RATE 44.2 (>39); POTASSIUM SERUM 3.6 MEQ/L (3.5-5.1)
[2022-01-19 07:28] LABS: ALBUMIN 1.3 GM/DL (3.2-5.2); ALT/SGPT 14 U/L (12-78); BILIRUBIN,DIRECT < 0.1 MG/DL (0.0-0.2); BILIRUBIN,TOTAL 0.2 MG/DL (0.2-1.0); FERRITIN 114 NG/ML (8-252); LDH LACTATE DEHYDROGENASE 198 U/L (84-246); NT-PRO BNP 1805 PG/ML (<125); TOTAL PROTEIN 4.1 GM/DL (6.4-8.2)
[2022-01-19] MEDS: HumaLOG INSULIN (NovoLOG) PER UNIT SC SCH ×4 (07:30→21:00)
[2022-01-19] MEDS: SIMVASTATIN 40 MG TAB PO SCH (08:25)
[2022-01-19] MEDS: ASPIRIN 81MG ENTERIC TABLET PO SCH (08:25)
[2022-01-19] MEDS: dexameTHASONE 4 MG/ML 1ML VIAL (J1100 PER 1MG) IV SCH (08:25)
[2022-01-19] MEDS: BARICITINIB 2MG TABLET (OLUMIANT) FOR EUA PO SCH (08:25)
[2022-01-19] MEDS: atenoloL 25 MG TAB PO SCH (08:26)
[2022-01-19] MEDS: REMDESIVIR 100 MG in NS 250 ML IV SCH (13:29)
[2022-01-19] MEDS: SODIUM CHLORIDE 0.9% INJ 10 ML SYR IV SCH (13:30)
[2022-01-20] MEDS: METOCLOPRAMIDE INJ 10MG/2ML VIAL (J2765 PER 1) IV SCH ×3 (02:22→13:26)
[2022-01-20 04:09] VITALS: BP 160/76
[2022-01-20] MEDS: PIPERACILLIN/TAZOBACTAM SOD 2.25 GM in D5W MINI-BAG PLUS 50 ML IV SCH (05:34)
[2022-01-20] MEDS: ISOSORBIDE DIN (ISORDIL) 10MG TAB PO SCH (05:35)
[2022-01-20 06:06] LABS: BASO % 0.1 % (0.0-1.0); EOS % 0.1 % (0.0-3.0); HEMATOCRIT 34.3 % (36.0-47.0); HEMOGLOBIN 11.5 g/dl (12.0-15.5); LYMPH # 2.4 10^3/uL (1.5-5.0); LYMPH % 22.4 % (24.0-44.0); MEAN CORPUSCULAR HEMOGLOBIN 30.2 pg (27.0-33.0); MEAN CORPUSCULAR HGB CONC 33.5 g/dl (32.0-36.5); MONO # 0.8 10^3/uL (0.0-0.8); NEUTROPHILS # 7.5 10^3/uL (1.5-8.5); NEUTROPHILS % 69.9 % (36.0-66.0); PLATELET COUNT, AUTOMATED 280 10^3/uL (150-450); RED BLOOD COUNT 3.81 10^6/uL (4.00-5.40); WHITE BLOOD COUNT 10.7 10^3/uL (4.0-10.0)
[2022-01-20 06:30] LABS: CALCIUM LEVEL 7.7 MG/DL (8.8-10.2); CREATININE FOR GFR 1.28 MG/DL (0.55-1.30); GLOMERULAR FILTRATION RATE 43.4 (>39); POTASSIUM SERUM 3.4 MEQ/L (3.5-5.1)
[2022-01-20] MEDS: HumaLOG INSULIN (NovoLOG) PER UNIT SC SCH ×2 (07:08→12:00)
[2022-01-20] MEDS: ASPIRIN 81MG ENTERIC TABLET PO SCH (08:09)
[2022-01-20] MEDS: SIMVASTATIN 40 MG TAB PO SCH (08:09)
[2022-01-20] MEDS: atenoloL 25 MG TAB PO SCH (08:14)
[2022-01-20] MEDS ORDERED: POTASSIUM CHLORIDE 10MEQ SR TABLET PO ONE (08:25)
[2022-01-20] MEDS ORDERED: **hydrALAZINE** 50 MG TAB PO SCH (09:00)
[2022-01-20 09:14] VITALS: O2SAT 95
[2022-01-20] MEDS ORDERED: ISOSORBIDE DIN (ISORDIL) 10MG TAB PO ONE (09:35)
[2022-01-20 09:44] VITALS: BP 173/72
[2022-01-20] MEDS ORDERED: KCL 40MEQ IN D5/0.45NS 1000ML 1,000 ML IV SCH (11:00)
[2022-01-20 13:27] VITALS: BP 163/74
[2022-01-20] MEDS ORDERED: HYDR50TA PO (16:13)
[2022-01-20] MEDS ORDERED: ISOS20TA4 PO (16:13)
[2022-01-20] MEDS ORDERED: SELF1KIT MC (16:15)
[2022-01-20] MEDS ORDERED: ISOSORBIDE DIN. (ISORDIL) 20 MG TAB PO SCH ×2 (18:00→21:00)
== END 2022-01-20 17:34 | disposition left against medical advice (07) | DRG 393 ==
LOC: M ED 13:13 → M ED INP 17:34 → ENRESERV 01-17 07:28 → M 4MAIN 01-17 08:30
PROVIDERS: ADMIT General Practice; ATTEND General Practice
PROC: 3E0333Z Introduction of Anti-inflammatory into Peripheral Vein, Percutaneous Approach (ICD-10-PCS; principal; 2022-01-17)
PROC: XW033E5 Introduction of Remdesivir Anti-infective into Peripheral Vein, Percutaneous Approach, New Technology Group 5 (ICD-10-PCS; 2022-01-17)
DX: K55.1 Chronic vascular disorders of intestine (principal); U07.1 COVID-19; I77.4 Celiac artery compression syndrome; N17.9 Acute kidney failure, unspecified; I73.9 Peripheral vascular disease, unspecified; I10 Essential (primary) hypertension; E11.22 Type 2 diabetes mellitus with diabetic chronic kidney disease; E78.5 Hyperlipidemia, unspecified; Z87.891 Personal history of nicotine dependence; K21.9 Gastro-esophageal reflux disease without esophagitis; F32.A Depression, unspecified; Z95.5 Presence of coronary angioplasty implant and graft; Z90.79 Acquired absence of other genital organ(s); Z90.49 Acquired absence of other specified parts of digestive tract; Z98.42 Cataract extraction status, left eye; Z79.82 Long term (current) use of aspirin; Z79.899 Other long term (current) drug therapy; I70.1 Atherosclerosis of renal artery; I77.1 Stricture of artery; I16.0 Hypertensive urgency; Z91.19 Patient's noncompliance with other medical treatment and regimen; R11.2 Nausea with vomiting, unspecified

== ENCOUNTER → 2022-06-11 | Outpatient (REF) | payer MEDICARE, OTHER ==
[~2022-06-11] MED LIST changes: +HYDR50TA PO; +ISOS20TA4 PO; +PROB250C PO; +SELF1KIT MC
[2022-06-11 19:26] LABS: CALCIUM LEVEL 8.6 MG/DL (8.8-10.2); CREATININE FOR GFR 2.16 MG/DL (0.55-1.30); GLOMERULAR FILTRATION RATE 23.7 (>39); MAGNESIUM LEVEL 2.1 MG/DL (1.8-2.4); PHOSPHORUS LEVEL 4.7 MG/DL (2.5-4.9)
== END ==
LOC: M LAB REF 16:48
PROVIDERS: ATTEND Nurse Practitioner Family
DX: N18.31 Chronic kidney disease, stage 3a (principal); E83.42 Hypomagnesemia

== ENCOUNTER → 2022-06-24 | Outpatient (CLI) | payer MEDICARE, OTHER ==
[2022-06-24 11:36] LABS: BASO # 0.1 10^3/uL (0.0-0.2); BASO % 0.8 % (0.0-1.0); EOS # 0.2 10^3/uL (0.0-0.5); EOS % 2.7 % (0.0-3.0); HEMATOCRIT 36.2 % (36.0-47.0); HEMOGLOBIN 12.2 g/dl (12.0-15.5); LYMPH # 1.7 10^3/uL (1.5-5.0); LYMPH % 20.5 % (24.0-44.0); MEAN CORPUSCULAR HEMOGLOBIN 31.9 pg (27.0-33.0); MEAN CORPUSCULAR HGB CONC 33.7 g/dl (32.0-36.5); MEAN CORPUSCULAR VOLUME 94.5 fl (80.0-96.0); MONO # 0.5 10^3/uL (0.0-0.8); MONO % 5.7 % (2.0-8.0); NEUTROPHILS # 5.9 10^3/uL (1.5-8.5); NEUTROPHILS % 69.8 % (36.0-66.0); PLATELET COUNT, AUTOMATED 293 10^3/uL (150-450); RED BLOOD COUNT 3.83 10^6/uL (4.00-5.40); WHITE BLOOD COUNT 8.5 10^3/uL (4.0-10.0)
[2022-06-24 11:47] LABS: INR 0.91; PROTHROMBIN TIME 12.7 SECONDS (12.7-14.5)
[2022-06-24 11:48] LABS: PARTIAL THROMBOPLASTIN TIME 28.1 SECONDS (25.9-37.0)
[2022-06-24 12:55] LABS: CALCIUM LEVEL 8.5 MG/DL (8.8-10.2); CREATININE FOR GFR 2.6 MG/DL (0.55-1.30); GLOMERULAR FILTRATION RATE 19.2 (>39); POTASSIUM SERUM 3.2 MEQ/L (3.5-5.1)
== END ==
LOC: M LAB 10:45
PROVIDERS: ATTEND Surgery Vascular Surgery
DX: K55.1 Chronic vascular disorders of intestine (principal)

== ENCOUNTER → 2022-06-30 | Outpatient (CLI) | payer MEDICARE, OTHER | LOC: M LABSMTC 09:43 | PROVIDERS: ATTEND Surgery Vascular Surgery | DX: Z20.822 Contact with and (suspected) exposure to COVID-19 (principal) ==

== ENCOUNTER 2022-08-13 09:31 | Inpatient (IN) | payer MEDICARE, OTHER ==
[~2022-08-13] VITALS: Ht 162.6 cm; Wt 51.5 kg
[2022-08-13] MEDS: CLOPIDOGREL 75 MG TAB PO SCH (09:00)
[2022-08-13] MEDS: ATORVASTATIN 20 MG TAB PO SCH (09:00)
[~2022-08-13 09:31] MED LIST changes: +ATORVASTATIN 20 MG TAB PO SCH; +CLOPIDOGREL 75 MG TAB PO SCH
[2022-08-13] MEDS ORDERED: SPIRONOLACTONE 25 MG TAB PO STA (09:59)
[2022-08-13] MEDS ORDERED: NIFEdipine 30 MG XL TAB PO STA (09:59)
[2022-08-13] MEDS ORDERED: **hydrALAZINE** 10 MG TAB PO ONE (10:00)
[2022-08-13 10:13] LABS: VENOUS HCO3 18.6 MEQ/L (23.0-27.0); VENOUS PARTIAL PRESSURE CO2 33.4 mmHg (38.0-50.0); VENOUS PARTIAL PRESSURE O2 47.7 mmHg (30.0-50.0); VENOUS PH 7.363 UNITS (7.330-7.430); VENOUS STANDARD HCO3 19.3 MEQ/L; VENOUS TOTAL CO2 19.6 MEQ/L (24.0-28.0)
[2022-08-13 10:15] LABS: BASO # 0.1 10^3/uL (0.0-0.2); BASO % 0.7 % (0.0-1.0); EOS # 0.2 10^3/uL (0.0-0.5); EOS % 2.7 % (0.0-3.0); HEMOGLOBIN 10.9 g/dl (12.0-15.5); LYMPH # 1.6 10^3/uL (1.5-5.0); LYMPH % 17.8 % (24.0-44.0); MEAN CORPUSCULAR HEMOGLOBIN 31.8 pg (27.0-33.0); MEAN CORPUSCULAR VOLUME 96.2 fl (80.0-96.0); MONO # 0.6 10^3/uL (0.0-0.8); MONO % 6.8 % (2.0-8.0); NEUTROPHILS # 6.5 10^3/uL (1.5-8.5); NEUTROPHILS % 71.7 % (36.0-66.0); PLATELET COUNT, AUTOMATED 309 10^3/uL (150-450); RED BLOOD COUNT 3.43 10^6/uL (4.00-5.40)
[2022-08-13] MEDS ORDERED: ACETAMINOPHEN 500 MG TAB PO ONE (11:00)
[2022-08-13 11:03] LABS: CALCIUM LEVEL 8.4 MG/DL (8.8-10.2); CREATININE FOR GFR 3.51 MG/DL (0.55-1.30); GLOMERULAR FILTRATION RATE 13.5 (>39); POTASSIUM SERUM 5.1 MEQ/L (3.5-5.1); THYROID STIMULATING HORMONE 4.76 uIU/ML (0.358-3.740)
[2022-08-13 11:08] LABS: RSV AMPLIFICATION NEGATIVE (NEGATIVE)
[2022-08-13] MEDS ORDERED: SPIR-10 PO (11:19)
[2022-08-13] MEDS ORDERED: HYDR10TAB PO (11:19)
[2022-08-13] MEDS ORDERED: FERR325T18 PO (11:19)
[2022-08-13] MEDS ORDERED: CLOP75TA2 PO (11:19)
[2022-08-13] MEDS ORDERED: NITR0.4S14 SL (11:19)
[2022-08-13] MEDS ORDERED: NIFE30TA50 PO (11:19)
[2022-08-13] MEDS ORDERED: HOME MED LIST COMPLETE! XX SCH (11:20)
[2022-08-13] MEDS ORDERED: NITROGLYCERIN 2% OINT 1 GM *U/D* PKT TOP SCH (12:00)
[2022-08-13] MEDS ORDERED: hydrALAZINE 20MG/ML 1ML VIAL (J0360 PER 20MG) IV STA (13:11)
[2022-08-13] MEDS ORDERED: HEPARIN DRIP 25,000 UNITS in IV 1 EA IV SCH (14:00)
[2022-08-13] MEDS ORDERED: HEPARIN SOD (PORCINE) 5000UNITS/ML 1ML VIAL/SYRINGE IV PRN ×2 (14:00→20:35)
[2022-08-13] MEDS ORDERED: HEPARIN SOD (PORCINE) 5000UNITS/ML 1ML VIAL/SYRINGE IV ONE ×2 (14:00→21:00)
[2022-08-13] MEDS ORDERED: ASPIRIN 325 MG TAB PO ONE (14:10)
[2022-08-13] MEDS: NITROGLYCERIN 2% OINT 1 GM *U/D* PKT TOP PRN (14:54)
[2022-08-13 15:40] VITALS: BP 180/92
[2022-08-13 16:00] VITALS: BP 180/72
[2022-08-13 17:50] VITALS: BP 140/66
[2022-08-13 19:54] VITALS: BP 113/58
[2022-08-13] MEDS: METOPROLOL TART 12.5 MG PER 1/2 TAB PO SCH (21:00)
[2022-08-13] MEDS ORDERED: ACETAMINOPHEN TAB 650MG DOSE (2X325MG) PO ONE (21:30)
[2022-08-13] MEDS ORDERED: HEPARIN SOD (PORCINE) 5000UNITS/ML 1ML VIAL/SYRINGE SQ SCH (22:00)
[2022-08-13] MEDS: HEPARIN DRIP 25,000 UNITS in IV 1 EA IV SCH (22:01)
[2022-08-13 23:53] VITALS: BP 172/74
[2022-08-14] VITALS (10 sets, daily range): BP systolic 134–186; BP diastolic 63–86
[2022-08-14] MEDS ORDERED: amLODIPine 5 MG TAB PO ONE (00:35)
[2022-08-14] MEDS ORDERED: hydrALAZINE 20MG/ML 1ML VIAL (J0360 PER 20MG) IV ONE ×2 (01:15→18:05)
[2022-08-14] MEDS ORDERED: NORCO, ANEXSIA 5/325MG TABLET (HYDROcodone/ACETAMINOPHEN) PO ONE (02:55)
[2022-08-14 04:25] LABS: HEMATOCRIT 27.4 % (36.0-47.0); HEMOGLOBIN 9.1 g/dl (12.0-15.5); MEAN CORPUSCULAR HEMOGLOBIN 31.7 pg (27.0-33.0); MEAN CORPUSCULAR HGB CONC 33.2 g/dl (32.0-36.5); MEAN CORPUSCULAR VOLUME 95.5 fl (80.0-96.0); PLATELET COUNT, AUTOMATED 294 10^3/uL (150-450); RED BLOOD COUNT 2.87 10^6/uL (4.00-5.40); WHITE BLOOD COUNT 8.1 10^3/uL (4.0-10.0)
[2022-08-14 05:03] LABS: CALCIUM LEVEL 7.6 MG/DL (8.8-10.2); CREATININE FOR GFR 3.96 MG/DL (0.55-1.30); GLOMERULAR FILTRATION RATE 11.8 (>39); POTASSIUM SERUM 3.3 MEQ/L (3.5-5.1)
[2022-08-14] MEDS ORDERED: POTASSIUM CHLORIDE 10MEQ SR TABLET PO ONE (09:00)
[2022-08-14] MEDS ORDERED: NIFEdipine 30 MG XL TAB PO SCH (09:00)
[2022-08-14] MEDS ORDERED: ASPIRIN 81 MG CHEW TABLET PO SCH (09:00)
[2022-08-14] MEDS ORDERED: LR 1,000 ML IV SCH (09:00)
[2022-08-14] MEDS: CLOPIDOGREL 75 MG TAB PO SCH (09:04)
[2022-08-14] MEDS: ATORVASTATIN 20 MG TAB PO SCH (09:04)
[2022-08-14] MEDS: ASPIRIN 81MG ENTERIC TABLET PO SCH (09:04)
[2022-08-14] MEDS: METOPROLOL TART 12.5 MG PER 1/2 TAB PO SCH (09:05)
[2022-08-14] MEDS: NORCO, ANEXSIA 5/325MG TABLET (HYDROcodone/ACETAMINOPHEN) PO PRN ×2 (11:48→20:57)
[2022-08-14] MEDS ORDERED: METOPROLOL TART 12.5 MG PER 1/2 TAB PO ONE (13:50)
[2022-08-14] MEDS: NITROGLYCERIN 2% OINT 1 GM *U/D* PKT TOP PRN (14:02)
[2022-08-14 19:34] LABS: INR 1.03
[2022-08-14 19:36] LABS: PARTIAL THROMBOPLASTIN TIME 59.4 SECONDS (25.9-37.0)
[2022-08-14] MEDS: CARVedilol 6.25 MG TAB PO SCH (20:57)
[2022-08-14] MEDS ORDERED: METOPROLOL TART 25 MG TABLET PO SCH (21:00)
[2022-08-14] MEDS ORDERED: ISOSORBIDE MON. (IMDUR) 30MG XR TAB PO SCH (21:00)
[2022-08-14] MEDS ORDERED: hydrALAZINE 20MG/ML 1ML VIAL (J0360 PER 20MG) IV PRN (21:00)
[2022-08-14] MEDS ORDERED: NS 1,000 ML IV SCH ×2 (22:00→23:30)
[2022-08-14] MEDS: HEPARIN DRIP 25,000 UNITS in IV 1 EA IV SCH (23:52)
[2022-08-15] VITALS: BP 148/68
[2022-08-15 02:34] LABS: HEMATOCRIT 23.7 % (36.0-47.0); HEMOGLOBIN 7.7 g/dl (12.0-15.5); MEAN CORPUSCULAR HEMOGLOBIN 31.7 pg (27.0-33.0); MEAN CORPUSCULAR HGB CONC 32.5 g/dl (32.0-36.5); MEAN CORPUSCULAR VOLUME 97.5 fl (80.0-96.0); PLATELET COUNT, AUTOMATED 238 10^3/uL (150-450); RED BLOOD COUNT 2.43 10^6/uL (4.00-5.40); WHITE BLOOD COUNT 6.8 10^3/uL (4.0-10.0)
[2022-08-15 03:29] LABS: CALCIUM LEVEL 7.4 MG/DL (8.8-10.2); CREATININE FOR GFR 3.83 MG/DL (0.55-1.30); GLOMERULAR FILTRATION RATE 12.3 (>39); POTASSIUM SERUM 4.5 MEQ/L (3.5-5.1)
[2022-08-15 04:00] VITALS: BP 144/64
[2022-08-15] MEDS ORDERED: NS 1,000 ML IV SCH (06:00)
[2022-08-15 07:49] VITALS: BP 178/76
[2022-08-15] MEDS: ATORVASTATIN 20 MG TAB PO SCH (08:49)
[2022-08-15] MEDS: ASPIRIN 81MG ENTERIC TABLET PO SCH (08:50)
[2022-08-15] MEDS: CARVedilol 6.25 MG TAB PO SCH (08:50)
[2022-08-15] MEDS: CLOPIDOGREL 75 MG TAB PO SCH (08:50)
[2022-08-15] MEDS ORDERED: NIFEdipine 30 MG XL TAB PO SCH (09:00)
== END 2022-08-15 09:11 | DRG 281 ==
LOC: M ED 09:31 → EDBD 09:31 → M ED INP 14:47 → EDBEDREQSVC 14:51 → ENRESERV 15:13 → M PCU 15:42
PROVIDERS: ADMIT Internal Medicine; ATTEND Internal Medicine
PROC: B246ZZZ Ultrasonography of Right and Left Heart (ICD-10-PCS; principal; 2022-08-13)
DX: I21.4 Non-ST elevation (NSTEMI) myocardial infarction (principal); N18.5 Chronic kidney disease, stage 5; N17.9 Acute kidney failure, unspecified; I12.0 Hypertensive chronic kidney disease with stage 5 chronic kidney disease or end stage renal disease; I73.9 Peripheral vascular disease, unspecified; E11.22 Type 2 diabetes mellitus with diabetic chronic kidney disease; E11.51 Type 2 diabetes mellitus with diabetic peripheral angiopathy without gangrene; S00.03XA Contusion of scalp, initial encounter; W01.0XXA Fall on same level from slipping, tripping and stumbling without subsequent striking against object, initial encounter; Y92.009 Unspecified place in unspecified non-institutional (private) residence as the place of occurrence of the external cause; Z98.49 Cataract extraction status, unspecified eye; Z90.79 Acquired absence of other genital organ(s); Z95.828 Presence of other vascular implants and grafts; Z87.891 Personal history of nicotine dependence; I16.0 Hypertensive urgency; E78.5 Hyperlipidemia, unspecified; I65.22 Occlusion and stenosis of left carotid artery; Z20.822 Contact with and (suspected) exposure to COVID-19; Z79.899 Other long term (current) drug therapy; Z91.041 Radiographic dye allergy status; N28.1 Cyst of kidney, acquired; Z95.1 Presence of aortocoronary bypass graft; R79.89 Other specified abnormal findings of blood chemistry; I70.1 Atherosclerosis of renal artery; I25.10 Atherosclerotic heart disease of native coronary artery without angina pectoris; I80.3 Phlebitis and thrombophlebitis of lower extremities, unspecified

== ENCOUNTER → 2022-09-11 | Outpatient (REF) | payer MEDICARE, OTHER ==
[~2022-09-11] MED LIST changes: -ATORVASTATIN 20 MG TAB PO SCH; +CLOP75TA2 PO; -CLOPIDOGREL 75 MG TAB PO SCH; +FERR325T18 PO; +HYDR10TAB PO; +NIFE30TA50 PO; +NITR0.4S14 SL; +SPIR-10 PO
[2022-09-11 18:47] LABS: PERCENT SATURATION 21.1 % (13.2-45.0)
== END ==
LOC: M LAB REF 16:52
PROVIDERS: ATTEND Nurse Practitioner Family
DX: D50.9 Iron deficiency anemia, unspecified (principal)

== ENCOUNTER 2022-10-07 04:21 | Inpatient (IN) | payer MEDICARE, OTHER ==
[~2022-10-07] VITALS: Ht 162.6 cm; Wt 58.3 kg
[2022-10-07 05:04] LABS: BASO # 0.1 10^3/uL (0.0-0.2); BASO % 0.6 % (0.0-1.0); EOS # 0.3 10^3/uL (0.0-0.5); EOS % 2.5 % (0.0-3.0); HEMATOCRIT 29.6 % (36.0-47.0); HEMOGLOBIN 9.4 g/dl (12.0-15.5); LYMPH # 1.3 10^3/uL (1.5-5.0); LYMPH % 9.8 % (24.0-44.0); MEAN CORPUSCULAR HEMOGLOBIN 31.3 pg (27.0-33.0); MEAN CORPUSCULAR HGB CONC 31.8 g/dl (32.0-36.5); MEAN CORPUSCULAR VOLUME 98.7 fl (80.0-96.0); MONO # 0.8 10^3/uL (0.0-0.8); MONO % 6.3 % (2.0-8.0); NEUTROPHILS # 10.2 10^3/uL (1.5-8.5); NEUTROPHILS % 80.5 % (36.0-66.0); PLATELET COUNT, AUTOMATED 356 10^3/uL (150-450); WHITE BLOOD COUNT 12.7 10^3/uL (4.0-10.0)
[2022-10-07 06:01] LABS: CK-MB VALUE MASS 1.3 NG/ML (<3.6); MB/CK RELATIVE INDEX 3.33 (< OR =4)
[2022-10-07 06:01] LABS: ALBUMIN 2.4 GM/DL (3.2-5.2); ALT/SGPT 17 U/L (12-78); BILIRUBIN,DIRECT < 0.1 MG/DL (0.0-0.2); BILIRUBIN,TOTAL 0.2 MG/DL (0.2-1.0); BLOOD UREA NITROGEN 72 MG/DL (7-18); CALCIUM LEVEL 8.4 MG/DL (8.8-10.2); CARBON DIOXIDE LEVEL 25 MEQ/L (21-32); CHLORIDE LEVEL 108 MEQ/L (98-107); CREATININE FOR GFR 4.82 MG/DL (0.55-1.30); GLOMERULAR FILTRATION RATE 9.4 (>39); GLUCOSE, FASTING 127 MG/DL (70-100); NT-PRO BNP 96555 PG/ML (<450); POTASSIUM SERUM 4.6 MEQ/L (3.5-5.1); SODIUM LEVEL 142 MEQ/L (136-145); THYROXINE (T4) 10.9 UG/DL (4.5-12.0); TOTAL PROTEIN 5.9 GM/DL (6.4-8.2)
[2022-10-07] MEDS ORDERED: FUROSEMIDE 100MG/10ML VIAL (J1940) IV ONE (06:25)
[2022-10-07] MEDS ORDERED: MINO2.5T PO (06:57)
[2022-10-07] MEDS ORDERED: SODI650T PO (06:57)
[2022-10-07] MEDS ORDERED: PANT40TA29 PO (06:57)
[2022-10-07] MEDS ORDERED: FERR1TAB8 PO (06:57)
[2022-10-07] MEDS ORDERED: TORS10TA3 PO (06:57)
[2022-10-07] MEDS ORDERED: VITMTA PO (06:57)
[2022-10-07] MEDS ORDERED: ACET-907 PO (06:57)
[2022-10-07] MEDS ORDERED: ADV250INH INH (06:57)
[2022-10-07] MEDS ORDERED: RENV2TAB PO (06:57)
[2022-10-07] MEDS ORDERED: SIMV20TA22 PO (06:57)
[2022-10-07] MEDS ORDERED: SENN8.6T28 PO (06:57)
[2022-10-07] MEDS ORDERED: ERGO500029 PO (06:57)
[2022-10-07] MEDS ORDERED: METO1TAB33 PO (06:57)
[2022-10-07] MEDS ORDERED: ASPI-161 PO (06:57)
[2022-10-07] MEDS ORDERED: HOME MED LIST COMPLETE! XX SCH (07:00)
[2022-10-07 07:20] LABS: CK-MB VALUE MASS < 1.0 NG/ML (<3.6); CPK CREATINE PHOSPHOKINASE 26 U/L (26-192); MB/CK RELATIVE INDEX 3.85 (< OR =4)
[2022-10-07] MEDS ORDERED: NITROGLYCERIN 0.4 MG SUBL TABLET SL PRN (09:40)
[2022-10-07] MEDS: METOPROLOL SUCC (TopROL XL) 100MG *XL* TAB PO SCH (12:26)
[2022-10-07] MEDS: FERROUS SULFATE 325MG TAB PO SCH ×2 (12:26→21:44)
[2022-10-07] MEDS: ASPIRIN 81MG ENTERIC TABLET PO SCH (12:26)
[2022-10-07] MEDS: CLOPIDOGREL 75 MG TAB PO SCH (12:27)
[2022-10-07] MEDS: (RENVELA) SEVELAMER **CARBONate** 800 MG TAB PO SCH ×3 (12:30→18:42)
[2022-10-07] MEDS: HEPARIN SOD (PORCINE) 5000UNITS/ML 1ML VIAL/SYRINGE SQ SCH ×2 (12:37→21:43)
[2022-10-07] MEDS: ACETAMINOPHEN TAB 650MG DOSE (2X325MG) PO PRN (16:29)
[2022-10-07] MEDS ORDERED: GLUCAGON INJ 1MG VIAL SC PRN (16:55)
[2022-10-07] MEDS ORDERED: GLUCOSE 4GM CHEW TABLET PO PRN (16:55)
[2022-10-07] MEDS ORDERED: DEXTROSE 50% 50 ML SYRINGE IV PRN (16:55)
[2022-10-07 17:11] VITALS: BP 186/90
[2022-10-07 18:07] VITALS: BP 181/79
[2022-10-07] MEDS: NIFEdipine 30 MG XL TAB PO SCH (18:34)
[2022-10-07] MEDS: ADVAIR HFA 115/21MCG INHALER INH SCH (20:00)
[2022-10-07 20:30] VITALS: BP 121/59
[2022-10-07] MEDS ORDERED: SIMVASTATIN 20 MG TAB PO SCH (21:00)
[2022-10-07] MEDS ORDERED: SODIUM BICARBONATE 325 MG TAB PO SCH (21:00)
[2022-10-07] MEDS ORDERED: SENNA 8.6 MG TAB (SENOKOT) PO SCH (21:00)
[2022-10-07] MEDS ORDERED: PANTOPRAZOLE 40MG TAB (PROTONIX) PO SCH (21:00)
[2022-10-08 00:15] VITALS: BP 136/63
[2022-10-08] MEDS: ACETAMINOPHEN TAB 650MG DOSE (2X325MG) PO PRN (01:02)
[2022-10-08 04:00] VITALS: BP 101/53
[2022-10-08 07:01] LABS: HEMATOCRIT 25.4 % (36.0-47.0); HEMOGLOBIN 8.1 g/dl (12.0-15.5); MEAN CORPUSCULAR HEMOGLOBIN 31.5 pg (27.0-33.0); MEAN CORPUSCULAR HGB CONC 31.9 g/dl (32.0-36.5); MEAN CORPUSCULAR VOLUME 98.8 fl (80.0-96.0); PLATELET COUNT, AUTOMATED 274 10^3/uL (150-450); RED BLOOD COUNT 2.57 10^6/uL (4.00-5.40); WHITE BLOOD COUNT 7.7 10^3/uL (4.0-10.0)
[2022-10-08] MEDS: ADVAIR HFA 115/21MCG INHALER INH SCH (07:19)
[2022-10-08 07:29] LABS: ALBUMIN 2.1 GM/DL (3.2-5.2); BILIRUBIN,TOTAL 0.3 MG/DL (0.2-1.0); CALCIUM LEVEL 8.3 MG/DL (8.8-10.2); CREATININE FOR GFR 5.06 MG/DL (0.55-1.30); GLOMERULAR FILTRATION RATE 8.9 (>39); MAGNESIUM LEVEL 2.2 MG/DL (1.8-2.4); POTASSIUM SERUM 4.9 MEQ/L (3.5-5.1); TOTAL PROTEIN 5.5 GM/DL (6.4-8.2)
[2022-10-08 07:45] LABS: PERCENT SATURATION 16.1 % (13.2-45.0)
[2022-10-08 08:00] VITALS: BP 153/67
[2022-10-08 08:37] VITALS: BP 153/67
[2022-10-08] MEDS: METOPROLOL SUCC (TopROL XL) 100MG *XL* TAB PO SCH (08:37)
[2022-10-08] MEDS: FERROUS SULFATE 325MG TAB PO SCH (08:37)
[2022-10-08] MEDS: (RENVELA) SEVELAMER **CARBONate** 800 MG TAB PO SCH ×2 (08:38→12:13)
[2022-10-08] MEDS: ASPIRIN 81MG ENTERIC TABLET PO SCH (08:38)
[2022-10-08] MEDS: NIFEdipine 30 MG XL TAB PO SCH (08:38)
[2022-10-08] MEDS: CLOPIDOGREL 75 MG TAB PO SCH (08:38)
[2022-10-08] MEDS: HEPARIN SOD (PORCINE) 5000UNITS/ML 1ML VIAL/SYRINGE SQ SCH (08:39)
[2022-10-08] MEDS ORDERED: TORSEMIDE 20 MG TAB PO SCH (09:00)
[2022-10-08 12:00] VITALS: BP 118/58
[2022-10-08] MEDS ORDERED: TORS20TA2 PO ×2 (12:58→14:13)
== END 2022-10-08 15:43 | disposition home or self-care (01) | DRG 291 ==
LOC: M ED 04:21 → EDBD 04:21 → M ED INP 09:36 → ENRESERV 15:42 → M PCU 17:02
PROVIDERS: ADMIT Family Medicine; ATTEND Family Medicine
DX: I13.0 Hypertensive heart and chronic kidney disease with heart failure and stage 1 through stage 4 chronic kidney disease, or unspecified chronic kidney disease (principal); I50.43 Acute on chronic combined systolic (congestive) and diastolic (congestive) heart failure; N17.9 Acute kidney failure, unspecified; E87.20 Acidosis, unspecified; E46 Unspecified protein-calorie malnutrition; N18.9 Chronic kidney disease, unspecified; I25.10 Atherosclerotic heart disease of native coronary artery without angina pectoris; E11.22 Type 2 diabetes mellitus with diabetic chronic kidney disease; N26.1 Atrophy of kidney (terminal); E11.51 Type 2 diabetes mellitus with diabetic peripheral angiopathy without gangrene; D63.1 Anemia in chronic kidney disease; Z66 Do not resuscitate; D72.829 Elevated white blood cell count, unspecified; Z95.1 Presence of aortocoronary bypass graft; Z87.891 Personal history of nicotine dependence; Z79.82 Long term (current) use of aspirin; Z79.02 Long term (current) use of antithrombotics/antiplatelets; Z91.041 Radiographic dye allergy status

== ENCOUNTER 2022-10-11 07:42 | Observation (INO) | payer MEDICARE, OTHER ==
[~2022-10-11] VITALS: Ht 162.6 cm; Wt 50.3 kg
[~2022-10-11 07:42] MED LIST changes: +ACET-907 PO; +ADV250INH INH; +ASPI-161 PO; +ERGO500029 PO; +FERR1TAB8 PO; +METO1TAB33 PO; +MINO2.5T PO; +PANT40TA29 PO; +RENV2TAB PO; +SENN8.6T28 PO; +SIMV20TA22 PO; +SODI650T PO; +TORS10TA3 PO; +TORS20TA2 PO; +VITMTA PO
[2022-10-11] MEDS ORDERED: ALBUTEROL SULFATE 2.5 MG/0.5 ML INH NEB SOLN INH ONE (08:05)
[2022-10-11] MEDS ORDERED: IPRATROPIUM 0.5MG/ALBUTEROL 2.5MG INH SOL UD 3ML (DUONEB) NEB ONE (08:05)
[2022-10-11 08:20] LABS: BASO # 0.1 10^3/uL (0.0-0.2); BASO % 0.8 % (0.0-1.0); EOS # 0.3 10^3/uL (0.0-0.5); EOS % 4.5 % (0.0-3.0); HEMATOCRIT 25.5 % (36.0-47.0); HEMOGLOBIN 8.2 g/dl (12.0-15.5); LYMPH # 1.1 10^3/uL (1.5-5.0); LYMPH % 15.4 % (24.0-44.0); MEAN CORPUSCULAR HEMOGLOBIN 31.5 pg (27.0-33.0); MEAN CORPUSCULAR HGB CONC 32.2 g/dl (32.0-36.5); MEAN CORPUSCULAR VOLUME 98.1 fl (80.0-96.0); MONO # 0.5 10^3/uL (0.0-0.8); MONO % 6.3 % (2.0-8.0); NEUTROPHILS # 5.2 10^3/uL (1.5-8.5); NEUTROPHILS % 72.6 % (36.0-66.0); PLATELET COUNT, AUTOMATED 236 10^3/uL (150-450); WHITE BLOOD COUNT 7.1 10^3/uL (4.0-10.0)
[2022-10-11 08:31] LABS: INR 1.02; PROTHROMBIN TIME 13.6 SECONDS (12.5-14.5)
[2022-10-11 08:32] LABS: PARTIAL THROMBOPLASTIN TIME 30.4 SECONDS (24.8-34.2)
[2022-10-11 08:50] LABS: RSV AMPLIFICATION NEGATIVE (NEGATIVE)
[2022-10-11] MEDS ORDERED: FUROSEMIDE 40MG/4ML VIAL (J1940) IV ONE (08:50)
[2022-10-11 09:00] LABS: ABG BASE EXCESS -5.5 (-2.0-2.0); ABG HCO3 17.4 MEQ/L (22.0-26.0); ABG O2 SATURATION 91.3 % (95.0-99.0); ABG PARTIAL PRESSURE CO2 25.5 mmHg (35.0-45.0); ABG PARTIAL PRESSURE O2 59.9 mmHg (75.0-100.0); ABG STANDARD HCO3 19.8 MEQ/L (22.0-26.0); ABG TOTAL CO2 18.2 MEQ/L (23.0-31.0); ABG pH (ARTERIAL) 7.452 UNITS (7.350-7.450)
[2022-10-11] MEDS: CLOPIDOGREL 75 MG TAB PO SCH (09:00)
[2022-10-11] MEDS: METOPROLOL SUCC (TopROL XL) 100MG *XL* TAB PO SCH (09:00)
[2022-10-11] MEDS: ASPIRIN 81MG ENTERIC TABLET PO SCH (09:00)
[2022-10-11] MEDS: MULTIVITAMINS/MINERALS THERAP 1 TAB PO SCH (09:00)
[2022-10-11] MEDS: NIFEdipine 30 MG XL TAB PO SCH (09:00)
[2022-10-11] MEDS: NITROGLYCERIN 0.4 MG SUBL TABLET SL PRN ×3 (09:14→09:24)
[2022-10-11] MEDS ORDERED: fentaNYL 100 MCG/2 ML INJECTION IV ONE ×2 (09:15→09:25)
[2022-10-11 09:16] LABS: CK-MB VALUE MASS 1.4 NG/ML (<3.6); MB/CK RELATIVE INDEX 4.83 (< OR =4)
[2022-10-11 09:33] LABS: ALBUMIN 2.5 GM/DL (3.2-5.2); ALT/SGPT 14 U/L (12-78); BILIRUBIN,DIRECT < 0.1 MG/DL (0.0-0.2); BILIRUBIN,TOTAL 0.2 MG/DL (0.2-1.0); BLOOD UREA NITROGEN 78 MG/DL (7-18); CALCIUM LEVEL 8.2 MG/DL (8.8-10.2); CARBON DIOXIDE LEVEL 21 MEQ/L (21-32); CHLORIDE LEVEL 111 MEQ/L (98-107); GLOMERULAR FILTRATION RATE 8.2 (>39); GLUCOSE, FASTING 97 MG/DL (70-100); LIPASE 128 U/L (73-393); NT-PRO BNP 87620 PG/ML (<450); POTASSIUM SERUM 4.3 MEQ/L (3.5-5.1); SODIUM LEVEL 140 MEQ/L (136-145); TOTAL PROTEIN 5.7 GM/DL (6.4-8.2)
[2022-10-11] MEDS ORDERED: ONDANSETRON 4MG 2ML VIAL As Ordered ONE (09:33)
[2022-10-11] MEDS ORDERED: ONDANSETRON 4MG 2ML VIAL IV ONE (09:40)
[2022-10-11 10:08] LABS: CK-MB VALUE MASS 1.4 NG/ML (<3.6); MB/CK RELATIVE INDEX 4.67 (< OR =4)
[2022-10-11] MEDS ORDERED: NITROGLYCERIN 2% OINT 1 GM *U/D* PKT TOP ONE (10:25)
[2022-10-11 11:39] LABS: CK-MB VALUE MASS 1.3 NG/ML (<3.6)
[2022-10-11] MEDS ORDERED: TORS20TA2 PO (13:23)
[2022-10-11] MEDS ORDERED: HOME MED LIST COMPLETE! XX SCH (13:25)
[2022-10-11] MEDS ORDERED: NITROGLYCERIN 0.4 MG SUBL TABLET SL PRN (13:35)
[2022-10-11] MEDS: FUROSEMIDE 100MG/10ML VIAL (J1940) IV SCH (18:58)
[2022-10-11 21:25] VITALS: BP 165/82
[2022-10-11] MEDS: ADVAIR HFA 115/21MCG INHALER INH SCH (21:58)
[2022-10-11] MEDS: SODIUM BICARBONATE 325 MG TAB PO SCH (22:05)
[2022-10-11] MEDS: (RENVELA) SEVELAMER **CARBONate** 800 MG TAB PO SCH (22:06)
[2022-10-11] MEDS: PANTOPRAZOLE 40MG TAB (PROTONIX) PO SCH (22:06)
[2022-10-11] MEDS: SIMVASTATIN 20 MG TAB PO SCH (22:06)
[2022-10-11] MEDS: FERROUS SULFATE 325MG TAB PO SCH (22:06)
[2022-10-11] MEDS: SENNA 8.6 MG TAB (SENOKOT) PO SCH (22:07)
[2022-10-11] MEDS: HEPARIN SOD (PORCINE) 5000UNITS/ML 1ML VIAL/SYRINGE SC SCH (22:08)
[2022-10-11] MEDS: ACETAMINOPHEN TAB 650MG DOSE (2X325MG) PO PRN (22:09)
[2022-10-11 22:48] VITALS: BP 137/55
[2022-10-12] MEDS: ACETAMINOPHEN TAB 650MG DOSE (2X325MG) PO PRN ×2 (04:29→20:51)
[2022-10-12 05:20] VITALS: BP 139/59
[2022-10-12 06:05] LABS: HEMATOCRIT 22.4 % (36.0-47.0); HEMOGLOBIN 7.2 g/dl (12.0-15.5); MEAN CORPUSCULAR HEMOGLOBIN 31.6 pg (27.0-33.0); MEAN CORPUSCULAR HGB CONC 32.1 g/dl (32.0-36.5); MEAN CORPUSCULAR VOLUME 98.2 fl (80.0-96.0); PLATELET COUNT, AUTOMATED 213 10^3/uL (150-450); RED BLOOD COUNT 2.28 10^6/uL (4.00-5.40); WHITE BLOOD COUNT 6.1 10^3/uL (4.0-10.0)
[2022-10-12 06:39] LABS: ALBUMIN 2.3 GM/DL (3.2-5.2); BILIRUBIN,TOTAL 0.2 MG/DL (0.2-1.0); CALCIUM LEVEL 8.2 MG/DL (8.8-10.2); CREATININE FOR GFR 5.38 MG/DL (0.55-1.30); GLOMERULAR FILTRATION RATE 8.3 (>39); POTASSIUM SERUM 3.9 MEQ/L (3.5-5.1)
[2022-10-12 07:42] LABS: MAGNESIUM LEVEL 2.1 MG/DL (1.8-2.4)
[2022-10-12] MEDS: ADVAIR HFA 115/21MCG INHALER INH SCH ×2 (07:54→19:02)
[2022-10-12] MEDS: CLOPIDOGREL 75 MG TAB PO SCH (08:18)
[2022-10-12] MEDS: (RENVELA) SEVELAMER **CARBONate** 800 MG TAB PO SCH ×3 (08:18→17:51)
[2022-10-12] MEDS: MULTIVITAMINS/MINERALS THERAP 1 TAB PO SCH (08:18)
[2022-10-12] MEDS: ASPIRIN 81MG ENTERIC TABLET PO SCH (08:18)
[2022-10-12] MEDS: FERROUS SULFATE 325MG TAB PO SCH ×2 (08:18→20:51)
[2022-10-12] MEDS: METOPROLOL SUCC (TopROL XL) 100MG *XL* TAB PO SCH (08:23)
[2022-10-12] MEDS: FUROSEMIDE 100MG/10ML VIAL (J1940) IV SCH (08:23)
[2022-10-12] MEDS: NIFEdipine 30 MG XL TAB PO SCH (08:23)
[2022-10-12] MEDS: HEPARIN SOD (PORCINE) 5000UNITS/ML 1ML VIAL/SYRINGE SC SCH ×2 (08:26→20:50)
[2022-10-12] MEDS ORDERED: TORSEMIDE 20 MG TAB PO SCH (09:00)
[2022-10-12 14:00] VITALS: BP 118/62
[2022-10-12] MEDS ORDERED: GLUCAGON INJ 1MG VIAL SC PRN (15:55)
[2022-10-12] MEDS ORDERED: DEXTROSE 50% 50 ML SYRINGE IV PRN (15:55)
[2022-10-12] MEDS ORDERED: GLUCOSE 4GM CHEW TABLET PO PRN (15:55)
[2022-10-12] MEDS: INSULIN LISPRO (NovoLOG) PER UNIT SC SCH (17:30)
[2022-10-12] MEDS: FUROSEMIDE 40MG/4ML VIAL (J1940) IV SCH (17:52)
[2022-10-12] MEDS: SODIUM BICARBONATE 325 MG TAB PO SCH (20:50)
[2022-10-12] MEDS: SENNA 8.6 MG TAB (SENOKOT) PO SCH (20:50)
[2022-10-12] MEDS: PANTOPRAZOLE 40MG TAB (PROTONIX) PO SCH (20:50)
[2022-10-12 20:51] VITALS: BP 130/59
[2022-10-12] MEDS: SIMVASTATIN 20 MG TAB PO SCH (20:51)
[2022-10-12] MEDS ORDERED: INSULIN LISPRO (NovoLOG) PER UNIT SC SCH (21:00)
[2022-10-12] MEDS ORDERED: POLYVINYL ALCOHOL OPHTH SOLN 15 ML(LIQUITEARS) OU PRN (21:05)
[2022-10-12] MEDS ORDERED: ONDANSETRON 4MG 2ML VIAL IV PRN (22:05)
[2022-10-13 06:00] VITALS: BP 140/54
[2022-10-13] MEDS: ADVAIR HFA 115/21MCG INHALER INH SCH (07:08)
[2022-10-13] MEDS: INSULIN LISPRO (NovoLOG) PER UNIT SC SCH (07:30)
[2022-10-13 08:05] LABS: HEMOGLOBIN 8.4 g/dl (12.0-15.5); MEAN CORPUSCULAR HEMOGLOBIN 31.7 pg (27.0-33.0); MEAN CORPUSCULAR HGB CONC 32.3 g/dl (32.0-36.5); MEAN CORPUSCULAR VOLUME 98.1 fl (80.0-96.0); PLATELET COUNT, AUTOMATED 246 10^3/uL (150-450); RED BLOOD COUNT 2.65 10^6/uL (4.00-5.40); WHITE BLOOD COUNT 7.2 10^3/uL (4.0-10.0)
[2022-10-13] MEDS: HEPARIN SOD (PORCINE) 5000UNITS/ML 1ML VIAL/SYRINGE SC SCH (08:20)
[2022-10-13] MEDS: FUROSEMIDE 40MG/4ML VIAL (J1940) IV SCH (08:20)
[2022-10-13] MEDS: CLOPIDOGREL 75 MG TAB PO SCH (08:20)
[2022-10-13] MEDS: (RENVELA) SEVELAMER **CARBONate** 800 MG TAB PO SCH (08:20)
[2022-10-13] MEDS: FERROUS SULFATE 325MG TAB PO SCH (08:20)
[2022-10-13] MEDS: MULTIVITAMINS/MINERALS THERAP 1 TAB PO SCH (08:20)
[2022-10-13] MEDS: ASPIRIN 81MG ENTERIC TABLET PO SCH (08:20)
[2022-10-13 08:23] VITALS: BP 170/71
[2022-10-13] MEDS: METOPROLOL SUCC (TopROL XL) 100MG *XL* TAB PO SCH (08:23)
[2022-10-13] MEDS: NIFEdipine 30 MG XL TAB PO SCH (08:23)
[2022-10-13] MEDS ORDERED: TORS20TA2 PO (08:28)
[2022-10-13 08:33] LABS: ALBUMIN 2.6 GM/DL (3.2-5.2); BILIRUBIN,TOTAL 0.2 MG/DL (0.2-1.0); CALCIUM LEVEL 8.5 MG/DL (8.8-10.2); CREATININE FOR GFR 5.15 MG/DL (0.55-1.30); GLOMERULAR FILTRATION RATE 8.7 (>39); POTASSIUM SERUM 4.1 MEQ/L (3.5-5.1); TOTAL PROTEIN 5.9 GM/DL (6.4-8.2)
[2022-10-17] MEDS ORDERED: VITAMIN D 50,000 UNITS CAPSULE (ERGOCALCIFEROL 1.25MG) PO SCH (09:00)
== END 2022-10-13 11:39 | disposition home or self-care (01) ==
LOC: M ED 07:42 → M ED INP 07:43 → M MSPAV 21:17
PROVIDERS: ADMIT Student in an Organized Health Care Education/Training Program; ATTEND Student in an Organized Health Care Education/Training Program
DX: I50.31 Acute diastolic (congestive) heart failure (principal); J96.01 Acute respiratory failure with hypoxia; I13.0 Hypertensive heart and chronic kidney disease with heart failure and stage 1 through stage 4 chronic kidney disease, or unspecified chronic kidney disease; N18.9 Chronic kidney disease, unspecified; I44.7 Left bundle-branch block, unspecified; I25.10 Atherosclerotic heart disease of native coronary artery without angina pectoris; D50.9 Iron deficiency anemia, unspecified; E78.5 Hyperlipidemia, unspecified; K59.00 Constipation, unspecified; J44.9 Chronic obstructive pulmonary disease, unspecified; K21.9 Gastro-esophageal reflux disease without esophagitis; E11.22 Type 2 diabetes mellitus with diabetic chronic kidney disease; Z95.1 Presence of aortocoronary bypass graft; I50.1 Left ventricular failure, unspecified; I73.9 Peripheral vascular disease, unspecified; I49.3 Ventricular premature depolarization; Z79.899 Other long term (current) drug therapy; Z79.82 Long term (current) use of aspirin; Z79.01 Long term (current) use of anticoagulants; Z79.51 Long term (current) use of inhaled steroids; Z91.041 Radiographic dye allergy status; Z87.891 Personal history of nicotine dependence; Z66 Do not resuscitate
CPT/HCPCS: 36415; 36600; 71045; 80048; 80053; 80076; 82550; 82553; 82803; 83690; 83735; 83880; 84439; 84443; 84484; 85025; 85027; 85610; 85730; 87631; 93005; 93041; 94640; 94760; 96372; 96374; 96375; 96376; 99285; G0378; J1644; J1940; J2405; J3010